=== PATIENT | male | born 1975 | race Caucasian/White ===

== ENCOUNTER 2016-09-28 05:32 | Day surgery (SDC) | payer MEDICAID ==
[~2016-09-28] VITALS: Ht 170.2 cm; Wt 70.9 kg
[~2016-09-28 05:32] MED LIST: DEXAMETHASONE SOD PHOS 4 MG/ML VIAL IVP ONE; FentaNYL CITRATE-PF 250 MCG/5 ML VIAL IVP ONE; LIDOCAINE HCL/PF 2% 5 ML VIAL IM ONE; MIDAZOLAM HCL 2 MG/2 ML VIAL IVP ONE; ONDANSETRON HCL 4 MG/2 ML VIAL IVP ONE; PROPOFOL 1% 20 ML VIAL IVP ONE; SUCCINYLCHOLINE CHLORIDE 20 MG/ML 10 ML VIAL IVP ONE
[2016-09-28] MEDS ORDERED: RINGERS SOLUTION,LACTATED 1,000 ML IV ONE ×2 (05:45→06:00)
[2016-09-28] MEDS ORDERED: CeFAZolin 2 GM/DEXTROSE 50 ML IV ONE ×2 (05:46→08:00)
[2016-09-28] MEDS ORDERED: ALBU8.5H IH (06:09)
[2016-09-28] MEDS ORDERED: ALBU90AE IH (06:12)
[2016-09-28] MEDS ORDERED: GUM MASTIC/STORAX/MSAL/ALCOHOL LIQUID 0.67 ML VIAL TP ONE (06:49)
[2016-09-28] MEDS ORDERED: LIDOCAINE HCL 2%/EPI 1:200,000/PF 10 ML VIAL ONE (06:49)
[2016-09-28] MEDS ORDERED: BUPIVACAINE HCL/PF 0.5% 30 ML VIAL ONE (06:50)
[2016-09-28] MEDS ORDERED: MEPERIDINE-PF 25 MG/ML SYRINGE IVP PRN (08:15)
[2016-09-28] MEDS ORDERED: FentaNYL CITRATE-PF 100 MCG/2 ML VIAL IVP PRN (08:15)
[2016-09-28] MEDS ORDERED: OXYGEN THERAPY IH SCH (08:45)
[2016-09-28] MEDS ORDERED: HYDROCODONE/ACETAMINOPHEN 5-325 MG TABLET PO PRN (08:45)
[2016-09-28] MEDS ORDERED: IBUPROFEN 800 MG TABLET PO PRN (08:45)
[2016-09-28] MEDS ORDERED: ACETAMINOPHEN 500 MG TABLET PO PRN (08:45)
[2016-09-28] MEDS: HYDROmorphone 2 MG/ML SYRINGE IVP PRN ×2 (09:30→09:45)
[2016-09-28] MEDS ORDERED: HYDROmorphone 2 MG/ML SYRINGE ONE (09:30)
== END 2016-09-28 11:05 | disposition home or self-care (01) ==
LOC: SURGERY 05:32
PROVIDERS: ATTEND Surgery
DX: K40.90 Unilateral inguinal hernia, without obstruction or gangrene, not specified as recurrent (principal); J45.909 Unspecified asthma, uncomplicated; Z72.89 Other problems related to lifestyle; Z87.09 Personal history of other diseases of the respiratory system
CPT/HCPCS: 49650; 88302; C1781; J0330; J0690; J1100; J1170; J2250; J2405; J2704; J3010; J3490 ×3; J7120